=== PATIENT | female | born 1975 | race Caucasian/White ===

== ENCOUNTER 2018-06-14 11:09 | Emergency (ER) | payer MEDICAID ==
[~2018-06-14] VITALS: Ht 162.6 cm; Wt 59.0 kg
[2018-06-14 11:16] VITALS: Ht 162.6 cm; Wt 59.0 kg
[2018-06-14 12:47] VITALS: BP 112/72
== END 2018-06-14 12:47 | disposition home or self-care (01) ==
LOC: D.ER 11:09
DX: G89.18 Other acute postprocedural pain (principal); F17.200 Nicotine dependence, unspecified, uncomplicated